=== PATIENT | female | born 1985 | race Caucasian/White ===

== ENCOUNTER 2020-03-05 16:49 | Emergency (ER) | payer MEDICAID, SELFPAY ==
[~2020-03-05] VITALS: Ht 154.9 cm; Wt 63.5 kg
[2020-03-05 16:51] VITALS: Ht 154.9 cm; Wt 63.5 kg
[2020-03-05 17:30] VITALS: BP 112/73
== END 2020-03-05 17:30 | disposition home or self-care (01) ==
LOC: ED 16:49
DX: U07.1 COVID-19 (principal); B34.9 Viral infection, unspecified
CPT/HCPCS: U0003